=== PATIENT | male | born 1985 | race Caucasian/White ===

== ENCOUNTER 2024-12-28 22:27 | Emergency (ER) | payer OTHER ==
[2024-12-28 22:38] VITALS: BP 113/62; PULSE 98; RESP 20; TEMP 101.5; BMI 25.9
[2024-12-28] MEDS ORDERED: IBUPROFEN 600 MG TABLET (FP) PO ONE (22:49)
[2024-12-28] MEDS: IBUPROFEN 600 MG TABLET (FP) PO ONE (23:06)
== END 2024-12-29 00:15 | disposition home or self-care (01) ==
LOC: JER 22:27
DX: J10.1 Influenza due to other identified influenza virus with other respiratory manifestations (principal); M79.10 Myalgia, unspecified site; R50.9 Fever, unspecified; R06.02 Shortness of breath; R05.9 Cough, unspecified; Z20.822 Contact with and (suspected) exposure to COVID-19
CPT/HCPCS: 0241U-QW; 71046-TC-FY; 99284-25